=== PATIENT | male | born 1970 | race Two or more races ===

== ENCOUNTER 2020-10-16 15:13 | Emergency (ER) | payer SELFPAY ==
[~2020-10-16] VITALS: Ht 185.4 cm; Wt 88.9 kg
--- NOTE | 2020-10-16 15:22 | NUR ---
THE PATIENT BIB FOR C/O THROAT TIGHTNESS AND CHEST PAIN SUDDEN ONSET X 45 MINS [employer]. PATIENT RATES PAIN 7/10. THE PATIENT DENIES SOB. IN ROOM AIR. RESPIRATION REGULAR AND UNLABORED. THE PATIENT IS IN ER BED #9. WARM BLANKET PROVIDED. MONITOR ATTACHED. WILL CONTINUE TO MONITOR.
--- NOTE | 2020-10-16 15:29 | NUR ---
Dr Change at the bedside.
[2020-10-16] MEDS ORDERED: NITROGLYCERIN PACKET 1 GM PACKET TD ONE (15:30)
[2020-10-16] MEDS ORDERED: ASPIRIN 81 MG TAB.CHEW PO ONE (15:30)
[2020-10-16 15:46] LABS: BASOPHILS # (AUTO) 0.2 /CMM (0.0-0.2); BASOPHILS % (AUTO) 2.8 % (0.0-2.0); EOSINOPHILS % (AUTO) 0.5 % (0.0-6.0); HEMATOCRIT 48 % (39-51); HEMOGLOBIN 15.6 g/dL (13.5-17.5); LYMPHOCYTES # (AUTO) 1.5 /CMM (0.8-4.8); LYMPHOCYTES % (AUTO) 18.3 % (20.0-44.0); MEAN CORPUSCULAR HGB CONC 33 g/dl (31.0-36.0); MEAN CORPUSCULAR VOLUME 86 fL (80-96); MONOCYTES # (AUTO) 0.4 /CMM (0.1-1.30); MONOCYTES % (AUTO) 4.5 % (2.0-12.0); NEUTROPHILS # (AUTO) 6.2 /CMM (1.8-8.9); NEUTROPHILS % (AUTO) 73.9 % (43.0-81.0); PLATELET COUNT (AUTO) 350 /CMM (150-450); RED BLOOD CELL COUNT(AUTO) 5.55 MIL/uL (4.5-6.0); WHITE BLOOD COUNT (AUTO) 8.4 K/uL (4.3-11.0)
[2020-10-16] MEDS ORDERED: NITROGLYCERIN PACKET 1 GM PACKET ONE (16:05)
[2020-10-16] MEDS ORDERED: ASPIRIN 81 MG TAB.CHEW ONE (16:05)
[2020-10-16 16:14] LABS: CALCIUM, SERUM 9.6 mg/dL (8.5-10.1); CARBON DIOXIDE 30 mmol/L (21-32); CHLORIDE 102 mmol/L (98-107); CREATININE 1.3 mg/dL (0.6-1.3); GLUCOSE 104 mg/dL (74-106); POTASSIUM 4.3 mmol/L (3.5-5.1); SODIUM SERUM 141 mmol/L (136-145); UREA NITROGEN, BLOOD 23 mg/dL (7-18)
[2020-10-16 16:27] LABS: B-TYPE NATRIURETIC PEPTIDE 7 PG/ML (0-125)
--- NOTE | 2020-10-16 18:36 | NUR ---
The patient is resting in a gurney. Denies pain. In room air and denies SOB. Respiration regular and unabored. Will continue to monitor the patient.
[2020-10-16] MEDS ORDERED: ALPR0.5T PO (20:07)
[2020-10-16 20:27] VITALS: BP 133/75
--- NOTE | 2020-10-16 20:27 | NUR ---
Patient discharged to home in stable condition. Written and verbal after care instructions given. Patient verbalizes understanding of instruction. IV removed. Catheter intact and site benign. Pressure and 4x4 applied to site. No bleeding noted.
== END 2020-10-16 20:27 | disposition home or self-care (01) ==
LOC: ER 15:20
DX: R07.89 Other chest pain (principal); E11.9 Type 2 diabetes mellitus without complications
CPT/HCPCS: 36415; 71045-TC; 80048-TC; 83880; 84484-TC; 85025-TC; 85378-TC